=== PATIENT | male | born 1945 | race Caucasian/White ===

== ENCOUNTER → 2017-07-03 09:25 | Outpatient (CLI) | payer MEDICARE, SELFPAY ==
[2013-05-24 08:53] VITALS: BMI 30.5
[2013-05-24 11:36] VITALS: BP 137/86
--- NOTE | 2017-07-03 | ASPOS_PTH ---
PATIENT: RACHEL BEYER LOC: LAB U#:[id number] AGE/SX: 79/M ROOM: RE07/03/[address]: Dr. Shant Cabrera, DO : 1945 BED: DIS: SPEC #: [id number] RECD: 07/03/17 14:46 STATUS: SANDEEP REMiguel #: [id number] BRE: 07/03/17 00:[address]: Ghanshyam Leroy DEPT: CYTOLOGY RECD BY: Curtis Joseph ENTERED: 07/03/17 14:47 SP TYPE: ASP HERE OTHR DR: Dr. Shant Cabrera, DO No Primary Care Phys Tissues: Neck, NOS Procedures: Pap Stain (control) Special Stain Group II Surgery Specimen Level IV Diff Quik Stain (control) Cell Block Cytology Other Fine Needle Asp on Site Comments: @ Ordering doctor for PAPS edited from to @ by NHAN at 07/04/17723 @ Ordering doctor for SSII edited from to DR.CWARTM Ferguson by NHAN at 07/04/17723 @ Ordering doctor for SUIV edited from to DR.CWARTM Ferguson by NHAN at 07/04/17723 @ Ordering doctor for DQ edited from to DR.CWARTM Ferguson by NHAN at 07/04/17723 @ Ordering doctor for CB edited from to DR.CWARTM Ferguson by NHAN at 07/04/17723 @ Ordering doctor for CYOTHER edited from to DR.CWARTM Ferguson by NHAN at 07/04/17723 @ Ordering doctor for FNAOS edited from to DR.CWARTM Ferguson by NHAN at 02/11/14 723 @ Submitting doctor edited from to @ by RGOOD at 07/04/1724 HEADER OPERATION: FNA right upper neck lymph node PRE-OP DIAGNOSIS: Right neck mass TISSUE SUBMITTED: FNA right upper neck lymph node, smears and cell block for cytology, sample for flow DIAGNOSIS CYTOLOGY Fine needle aspiration, right upper neck lymph node (smears and cell block): Atypical lymphocytes are present. AM:sujit 07/07/17 COMMENT The specimen is evaluated at the time of FNA by Dr. Cabrera. Immediate Evaluation = Atypical lymphocyte population. Immunohistochemistry ([id number]) reveals a prominent portion of B-cells (CD79a positive). Flow cytometric analysis performed at [facility] reveals the population to be positive for CD5, CD43 and negative for CD23. A monoclonal B-cell population is detected with kappa light chain restriction representing 54% of the B cells. By light scatter, the clonal B-cell population contains cells that are larger than background T and B cells. There is no loss of aberrant expression of kearns T-cell antigens. An atypical lymphoproliferative process is present. Clinical correlation is necessary. An incisional or excisional biopsy is recommended for definite classification. The complete report from [facility] is viewable in patient?s EMR. Case has been reviewed in consultation with Dr. Matthews who concurs with the above diagnosis. IDC:SJ CYTOLOGY STUDY Slides are reviewed. CYTOLOGY GROSS Received is 0.2 ml of reddish fluid labeled with the patient's name, and designated FNA right upper neck lymph node. Three imprints and three paps are made from the submitted fluid and the rest is added to CytoLyt for cell block preparation. Submitted for cytology study. / AM:sujit 07/03/17 TC:? CPT: 73395, 49091, 05912, 57906
--- NOTE | 2017-07-03 | IMM_PTH ---
PATIENT: RACHEL BEYER LOC: [facility] U#:[id number] AGE/SX: 79/M ROOM: RE07/03/[address]: Dr. Shant Cabrera DO : 1945 BED: DIS: SPEC #: [id number] RECD: 07/04/17 11:06 STATUS: SANDEEP REMiguel #: [id number] BRE: 07/03/17 00:[address]: Shant Cabrera DEPT: IMMUNOHISTOCHEMISTRY RECD BY: Mariposa Carvalho ENTERED: 07/04/17 11:08 SP TYPE: IMMUNO OTHR DR: No Primary Care Phys Tissues: Lymph node of neck, NOS Procedures: BCL-2 (add) BCL-6 (add) CD10 (add) CD20 (add) CD23 (add) CD43 (add) CD45 (add) CD5 (add) CD79A (add) CYCLIN (add) KI-67 (add) CD3 (initial) PHYSICIAN & INSTITUTION [place] [id number] SPECIMEN INFORMATION: Tissue Source: FNA right upper neck lymph node Clinical Info: Right neck mass Specimen Number: [id number] CPT code: 08540, 51157 x11 METHODOLOGY: Deparaffinized sections of prefer/formalin-fixed tissue or PAP/DQ stained slides are incubated with monoclonal/polyclonal antibodies/oligonucleotide probes. Localization is made via biotin free immunoperoxidase method. Appropriate controls are performed and reacted as expected. Results on target cell population are indicated in the following table: RESULTS: ANTIBODY / CLONE RESULT CD3 (PS1) positive CD5 (SP10) positive CD10 (56C6) negative CD20 (L26) positive CD23 (1B12) positive CD45 (RP2/18) positive CD79a (11E3) positive CD43 (L60) positive Cyclin D1/BCL-1 (SP4) negative BCL-2 (bcl-2/100/D5) positive BCL-6 (QJ911I/A8) negative Ki-67 (30-9) positive, low These tests were developed and their performance characteristics determined by [facility]. They may not have been cleared or approved by the U.S. Food and Drug Administration. The FDA has determined that such clearance or approval is not necessary. INTERPRETATION: Right upper neck lymph node, fine needle aspiration: Atypical lymphocyte population. AM:sujit 07/07/17 Comment: Prominent CD79a (B-cell) staining is present and suspicious for an atypical lymphoproliferative process. Case has been reviewed in consultation with Dr. Matthews who concurs with the above diagnosis. IDC:SJ
== END ==
PROVIDERS: Visit Provider Pathology Anatomic Pathology & Clinical Pathology
DX: R22.1 Localized swelling, mass and lump, neck (principal)
CPT/HCPCS: 10021; 88161; 88305; 88312; 88313; 88341; 88342

== ENCOUNTER → 2017-07-26 15:29 | Outpatient (CLI) | payer MEDICARE, SELFPAY ==
[2017-07-26 16:16] LABS: LDH 212 U/L (87-241)
== END ==
PROVIDERS: Visit Provider Internal Medicine Hematology & Oncology
DX: C85.19 Unspecified B-cell lymphoma, extranodal and solid organ sites (principal); R59.0 Localized enlarged lymph nodes
CPT/HCPCS: 83615

== ENCOUNTER 2017-08-10 15:25 | Emergency (ER) | payer MEDICARE, SELFPAY ==
[2017-08-10 15:26] VITALS: BP 168/102; PULSE 74; RESP 16; TEMP 36; O2SAT 92; BMI 30.7
--- NOTE | 2017-08-10 16:24 | ED.DCSUM_ITS ---
- ER Visit Summary Date of Service: 08/10/17 Chief Complaint: Facial laceration History of Present Illness: The patient is a 71 M presenting for evaluation secondary to a facial laceration. Patient was trimming trees today was wearing safety glasses, he states that the tree branch came back in with them in the face. This caused a laceration just inside of his right eye. He denies loss of consciousness. Patient is not in any anticoagulants. Denies any numbness weakness, does endorse that he has mild amount of blurred vision out of the right eye. He wears contacts not sure if contact is still in place. Review of systems otherwise negative. Physical Examination: Primary survey: Airway is patent, breath sounds equal bilateral, central peripheral pulses 2+ and symmetric, GCS 15 out of 15. Vitals within normal limits. Secondary survey: General: Well-nourished well-developed no acute distress Head: Normocephalic atraumatic Eyes: PERRLA, EOMI, evidence of a laceration measuring approximately a centimeter tracking up into the patient's medial canthus of the right eye from the inferior portion. Unable to determine if this involves the tear duct, but there is some exposed medial rectus muscle and the patient deviates his eyes to the right. Negative Leslee sign. ENT: TMs clear no hemotympanum no drainage Neck: Nontender full range of motion, no step-offs noted Heart: Regular rate and rhythm no murmurs Lungs: Respirations nondistressed, lung sounds clear to auscultation bilaterally , chest nontender, normal chest excursion bilaterally Abdomen: Soft nontender nondistended normal bowel sounds no palpable abdominal masses Back: Nontender no step-offs noted Extremities: Nontender: Active full range of motion ?4 Skin: Normal color no trauma Neuro: Alert and oriented ?4, GCS 15 out of 15, no lateralizing neurological deficits. Emergency Department Course and Treatment: Patient presented secondary to facial trauma. Primary and secondary surveys are noted as above. No indication for neuroimaging at this time. Given the patient's proximity of his laceration to his tear duct in his eye, I believe he would be best evaluated by ophthalmology. I discussed this with Dr. Madrigal, patient will be transferred to Dr. Madrigal's office by private car for definitive repair. Disposition: Transfer to ophthalmology Impression: 1. Right medial canthus laceration This note was generated with Dragon dictation software. It may contain incorrect words, spelling, and punctuation that were not noted in review of the chart prior to signing ED Disposition - Plan for ED Patient: Disposition: Home or Assisted Living Chief Complaint: Eye Problem Diagnosis: Facial laceration Instructions: ED Laceration All Referrals: Guevara Madrigal MD [STAFF PHYSICIAN] - (Go directly to the office)
[2017-08-10] MEDS: Fluorescein 1 MG STRIP 1 STRIP RIGHT EYE (16:30)
== END 2017-08-10 16:31 | disposition home or self-care (01) ==
LOC: ED 16:31
PROVIDERS: Emergency Provider Emergency Medicine; Family Provider Internal Medicine; PCP Internal Medicine
DX: S01.111A Laceration without foreign body of right eyelid and periocular area, initial encounter (principal); R40.2410 Glasgow coma scale score 13-15, unspecified time; R01.1 Cardiac murmur, unspecified; W22.8XXA Striking against or struck by other objects, initial encounter; Y93.9 Activity, unspecified; Y92.9 Unspecified place or not applicable; K21.9 Gastro-esophageal reflux disease without esophagitis; E78.00 Pure hypercholesterolemia, unspecified; E03.9 Hypothyroidism, unspecified; C85.90 Non-Hodgkin lymphoma, unspecified, unspecified site; Z79.82 Long term (current) use of aspirin; Z79.899 Other long term (current) drug therapy
CPT/HCPCS: 99283

== ENCOUNTER 2018-04-30 14:09 | Emergency (ER) | payer MEDICARE, SELFPAY ==
[2018-04-30 14:10] VITALS: BP 169/89; PULSE 75; RESP 16; TEMP 36.7; O2SAT 95
--- NOTE | 2018-04-30 14:35 | EKG12_ITS ---
Test Reason : CP Blood Pressure : / mmHG Vent. Rate : 069 BPM Atrial Rate : 069 BPM P-R Int : 184 ms QRS Dur : 120 ms QT Int : 408 ms P-R-T Axes : -01 -63 081 degrees QTc Int : 437 ms Normal sinus rhythm Left anterior fascicular block Left ventricular hypertrophy with QRS widening Cannot rule out Septal infarct , age undetermined Abnormal ECG Confirmed by MELONIE BRANDON, JOSIAH ([id number]), manager editorial SCARLETT GRIMM ([id number]) on 05/03/2018 1:29:49 PM Referred By: GIOVANNY Confirmed By:JOSIAH WILHELM MD
[2018-04-30] MEDS: Aspirin 81 MG TAB.CHEW 324 MG PO (14:54)
[2018-04-30 14:55] VITALS: O2SAT 95
[2018-04-30 15:04] LABS: Absolute Lymphocyte Count 1.32 X10^3/ul (0.83-4.51); Absolute Neutrophil Count 3.5 X10^3/uL (2.0-7.7); Basophil# 0.04 X10^3/uL; Basophil% 0.7 % (0-1); Eosinophil# 0.15 X10^3/uL; Eosinophils% 2.5 % (0-5); Hematocrit 47.8 % (40-54); Hemoglobin 16.1 g/dl (13.0-16.5); Lymphocyte # 1.32 X10^3/ul (4.0); Lymphocyte % 21.7 % (19-41); Mean Corp Hgb Conc 33.7 g/gl (32-36); Mean Corpuscular Hgb 30.2 pg (27.0-32.0); Mean Corpuscular Volume 89.7 fL (80-94); Mean Platelet Vol. 11.5 fl (6.2-12.0); Monocyte# 1.05 X10^3/uL; Monocyte% 17.3 % (0-10); Neutrophil % 57.6 % (47-70); Platelet Count 171 K/mm3 (150-450); RBC Distribution Width CV 13.8 % (11.6-14.6); RBC Distribution Width SD 45.1 fl (35.1-43.9); Red Blood Count 5.33 M/mm3 (4.6-6.2); White Blood Count 6.1 K/mm3 (4.4-11.0)
[2018-04-30 15:07] LABS: POSITIVE COUNT NO; POSITIVE DIFFERENTIAL NO; POSITIVE MORPHOLOGY NO
--- NOTE | 2018-04-30 15:10 | RAD_ITS ---
STUDY: X-RAY CHEST REASON FOR EXAM: Male, 72 years old. Sternal chest pain. TECHNIQUE: PA and lateral views of the chest. COMPARISON: Comparison is made with prior study dated May 24, 2013. FINDINGS: EKG electrodes are seen. The lungs are clear and expanded. Scattered calcified granulomas. There is no demonstrated pleural abnormality. Normal size heart. Normal mediastinum and alex. Normal visualized pulmonary arteries. There is atherosclerotic calcification of the aortic arch with tortuosity. Normal visualized thoracic spine. Normal visualized ribs, clavicles, and shoulders. There is no demonstrated abnormality of the visualized soft tissue structures of the upper abdomen. RAD/Chest PA and Lateral IMPRESSION: Normal x-ray examination of the chest. Electronically Signed: Davin Mirza MD at 15:37 EST Tel [phone], Service support ,
[2018-04-30 15:14] LABS: Anion Gap 5 (5-15); BUN 22 mg/dL (7-18); BUN/Creat Ratio 19.1 RATIO (10-20); Calcium,Total 8.6 mg/dL (8.5-10.1); Chloride 111 mmol/L (98-107); Creatinine, Serum 1.15 mg/dL (0.70-1.30); EST Glomerular Filtration Rate 66 mL/min (>60); Est Glom Filt Rate - Afr Amer 80 mL/min (>60); Estimated Creatinine Clearance 70.78 ml/min; Glucose 81 mg/dL (74-106); Potassium 4.1 mmol/L (3.5-5.1); Sodium Level 145 mmol/L (136-145)
--- NOTE | 2018-04-30 15:58 | ED.VISSUMM ---
- ER Visit Summary Date of Service: 04/30/18 Chief Complaint: Chest pain History of Present Illness: The patient is a 72 M presenting with essentially 3 weeks of intermittent right sided nonradiating chest pain. He states that the chest pain only occurs when he goes from a sitting position to standing and last for 1-2 seconds. He describes it as right along the lateral aspect of the right side of his sternum. It does not radiate into his back. He denies any associated diaphoresis or dyspnea. No exertional component. No recent travel or immobilization. No lower extremity pain or swelling. He has never smoked. He has a history of hypothyroidism only. He takes a thyroid medication and a baby aspirin daily. He has had negative stress test in the past. Denies family history of cardiac disease at young age. He states that he has not had any symptoms with exertion and has no difficulty going on long walks again the pain only occurs when going from sitting to standing. Physical Examination: Vitals are within normal limits. He is not in distress. Neck is supple. Heart tones are regular and without murmur. Lungs are clear bilaterally. Abdomen is soft and nontender. He has no tenderness along the lower extremity venous system, palpable cords, edema, or other evidence of DVT. Test Results: Chest x-ray is unremarkable. CBC and chemistries normal. Troponin negative. EKG unremarkable. Emergency Department Course and Treatment: Vitals are within normal limits. He is not in distress. EKG reveals sinus rhythm without acute ischemic changes. Troponin is negative after 4 weeks of symptoms but they have been intermittent. I talked with him about his overall risk profile. The pain is somewhat atypical by description. It is only on the right side and only occurs with certain movements, not worse with exertion. He has no associated cardiac type symptoms such as diaphoresis or dyspnea and no trouble with exertion or going on long walks. He is in excellent shape physically and has no significant family cardiac history. He has never been a smoker. He has no clinical evidence of DVT and there is no pleuritic component. He has no risk factors for pulmonary embolism. He has no mediastinal widening on chest x-ray and he has strong pulses in both upper extremities. No evidence of aortic dissection. I explained the possibility of bringing him in here for observation and a stress test but he would prefer to do this as an outpatient. I paged his primary care physician to arrange this and encouraged him to come back if he has any further symptoms or new or concerning features. Treatment Plan: Follow up closely with his doctor for an outpatient stress test Disposition: Home stable Impression: She will encounter chest pain uncertain etiology This note was generated with [employer] dictation software. It may contain incorrect words, spelling, and punctuation that were not noted in review of the chart prior to signing ED Disposition - Plan for ED Patient: Chief Complaint: Chest Other Instructions: ED Chest Pain Atypical Unkn Cause Referrals: Esteban Smyth MD [Primary Care Provider] -
[2018-04-30 16:19] VITALS: BP 118/64; PULSE 71; RESP 20; O2SAT 100
--- NOTE | 2018-04-30 16:21 | ED.RN ---
THIS NURSE REVIEWED D/C INSTRUCTIONS WITH PT. PT VERBALIZED UNDERSTANDING OF INSTRUCTIONS. IV D/C. IV CATHETER INTACT. PT TOLERATED WELL. PT DENIES FURTHER NEEDS OR QUESTIONS AT THIS TIME. PT AMBULATES FROM ROOM ON OWN WITHOUT ASSISTANCE FROM STAFF
== END 2018-04-30 16:22 | disposition home or self-care (01) ==
LOC: ED 15:00
PROVIDERS: Emergency Provider Emergency Medicine; Family Provider Internal Medicine; PCP Internal Medicine
DX: R07.89 Other chest pain (principal); E03.9 Hypothyroidism, unspecified; Z79.82 Long term (current) use of aspirin; Z79.899 Other long term (current) drug therapy
CPT/HCPCS: 71046; 80048; 84484; 85025; 93005; 99284; A4216

== ENCOUNTER → 2018-06-06 11:54 | Outpatient (CLI) | payer MEDICARE, SELFPAY ==
[2018-06-06 12:13] LABS: Mucous, Urine 0 SEEN /hpf (<or=2+); Red Blood Cells-Urine 0 SEEN /hpf (0-5)
[2018-06-06 12:22] LABS: Color, Urine Yellow (Yellow); Glucose, Dipstick Normal (Normal); Ketone-Dipstick Negative (Negative); Leukocyte Esterase-Dipstick Negative /ul (Negative); Nitrite-Dipstick Negative (Negative); Occult Blood-Urine Negative /ul (Negative); Protein-Dipstick Negative (Negative); Specific Gravity, Urine 1.005 (1.002-1.030); Urine Bilirubin Dipstick Negative (Negative); Urine Clarity Clear (Clear); Urine Urobilinogen Normal (Normal)
[2018-06-06 12:39] LABS: PSA,Total- Diagnostic 1.49 ng/mL (0.0-4.0); Thyroid Stim Hormone (TSH) 1.43 uIU/mL (0.358-3.74)
[2018-06-06 12:43] LABS: Squamous Epithelial Cells - UA 0 SEEN /hpf (0-5); White Blood Cells 0 SEEN /hpf (0-5)
[2018-06-06 12:44] LABS: Bacteria 0 SEEN /hpf (None Seen)
== END ==
PROVIDERS: Family Provider Internal Medicine; PCP Internal Medicine; Referring Provider Nurse Practitioner; Visit Provider Nurse Practitioner
DX: N40.1 Benign prostatic hyperplasia with lower urinary tract symptoms (principal); R35.0 Frequency of micturition; R31.29 Other microscopic hematuria; R10.30 Lower abdominal pain, unspecified; E03.9 Hypothyroidism, unspecified
CPT/HCPCS: 81001; 84153; 84443; 87086

== ENCOUNTER → 2018-08-31 13:02 | Outpatient (CLI) | payer MEDICARE, SELFPAY ==
--- NOTE | 2018-08-31 13:05 | ECHOD_ITS ---
Reason For Study: Dyspnea/SOB Procedure This was a 2D Doppler, Color Flow transthoracic echocardiogram. Myocardial strain analysis was performed in this exam to aid in the assessment of cardiac function. The exam was of adequate technical quality. Exam performed in department. Left Ventricle Normal LV size. Left ventricular systolic function is normal. The estimated ejection fraction is 65 %. The global longitudinal strain = -22 % (normal). Diastolic function is indeterminate. No regional wall motion abnormalities noted. Right Ventricle Normal RV size. Normal systolic function. Atria The left atrium is mildly enlarged. Normal right atrium. No doppler evidence for ASD. Mitral Valve There is no mitral annular calcification. Normal mitral valve. Trivial mitral valve insufficiency. Tricuspid Valve Trivial tricuspid valve insufficiency. Aortic Valve Trisinus/trileaflet aortic valve. Normal aortic valve. Pulmonic Valve The pulmonic valve is not well visualized. Trivial pulmonic valve insufficiency. Great Vessels Normal sized aortic root. Pericardium/Pleural No pericardial effusion. MMode/2D Measurements & Calculations LVIDd: 4.0 cm IVSd: 1.5 cm Ao root diam: 3.6 cm LVIDs: 2.5 cm LVPWd: 1.0 cm LA dimension: 3.8 cm RVDd: 3.5 cm FS: 37.3 % LAV(MOD-bp): 57.4 ml LVAd ap4: 31.3 cm2 SV(MOD-sp4): 61.1 ml LAV(MOD-bp) Indexed: 29.0 ml/m2 EDV(MOD-sp4): 102.8 ml LAV(MOD-sp2): 57.0 ml EDV(sp4-el): 108.5 ml LAV(MOD-sp4): 51.6 ml LVAs ap4: 17.5 cm2 ESV(MOD-sp4): 41.8 ml ESV(sp4-el): 42.1 ml EF(MOD-sp4): 59.4 % EF(sp4-el): 61.2 % SV(sp4-el): 66.4 ml LA A4 area: 19.3 cm2 RA A4 area: 18.1 cm2 Time Measurements MV dec time: 0.20 sec Doppler Measurements & Calculations MV E max gilbert: 79.8 cm/sec Lat Peak E' Gilbert: 10.8 cm/sec Med Peak E' Gilbert: 5.0 cm/sec MV A max gilbert: 90.6 cm/sec E/E' lat: 7.4 E/E' med: 16.1 MV E/A: 0.88 MV V2 max: 104.9 cm/sec MV P1/2t max gilbert: 89.1 cm/sec Ao V2 max: 112.5 cm/sec MV max P.4 mmHg MV P1/2t: 103.4 msec Ao max P.1 mmHg MV V2 mean: 55.2 cm/sec MV mean P.5 mmHg MV dec slope: 252.4 cm/sec2 MV V2 VTI: 33.7 cm MVA(P1/2t): 2.1 cm2 LV V1 max: 85.5 cm/sec PA V2 max: 76.2 cm/sec PI end-d gilbert: 128.3 cm/sec LV V1 max P.9 mmHg Interpretation Summary Left ventricular systolic function is normal. The estimated ejection fraction is 65 %. The global longitudinal strain = -22 % (normal). The left atrium is mildly enlarged. Trivial mitral valve insufficiency. Trivial tricuspid valve insufficiency. Trivial pulmonic valve insufficiency. Diastolic function is indeterminate. Ordering Physician: Andre Cook Referring Physician: Andre Cook Performed By: Marco Ayon RCS
== END ==
PROVIDERS: Family Provider Internal Medicine; PCP Internal Medicine; Referring Provider Nurse Practitioner Family; Visit Provider Nurse Practitioner Family
DX: R06.02 Shortness of breath (principal); I44.4 Left anterior fascicular block; I10 Essential (primary) hypertension
CPT/HCPCS: 93306

== ENCOUNTER → 2020-02-12 08:42 | Outpatient (CLI) | payer MEDICARE, SELFPAY ==
[2020-02-12 10:06] LABS: AST(SGOT) 20 U/L (15-37); Alanine Aminotransfer ALT/SGPT 41 U/L (16-61); Albumin, Serum 3.6 g/dL (3.2-5.0); Alkaline Phosphatase 70 U/L (45-117); Bilirubin, Direct 0.14 mg/dL (0.00-0.30); Cholesterol 150 mg/dL (200); Globulin 3.2 g/dL (2.2-4.2); High Density Lipoprotein 43 mg/dL; Protein, Total 6.8 g/dL (6.4-8.2); Triglycerides 70 mg/dL; Very Low Density Lipoprotein 14 mg/dL (5-40)
== END ==
PROVIDERS: PCP Internal Medicine; Referring Provider Internal Medicine Cardiovascular Disease; Visit Provider Internal Medicine Cardiovascular Disease
DX: E78.00 Pure hypercholesterolemia, unspecified (principal)
CPT/HCPCS: 36415; 80061; 80076

== ENCOUNTER → 2020-03-16 10:04 | Outpatient (CLI) ==
[2020-03-16 11:58] LABS: PSA,Total- Diagnostic 2.98 ng/mL (0.0-4.0)
== END ==
PROVIDERS: Urology
DX: N40.1 Benign prostatic hyperplasia with lower urinary tract symptoms (principal)
CPT/HCPCS: 36415; 84153

== ENCOUNTER → 2020-12-28 | Outpatient (CLI) | payer MEDICARE, SELFPAY ==
[2020-12-28 13:56] LABS: Hemoglobin A1c 5.4 % (3.8-5.6)
[2020-12-28 13:59] LABS: Thyroid Stim Hormone (TSH) 3.06 uIU/mL (0.358-3.74)
== END | disposition home or self-care (01) ==
LOC: LABSPEC 13:15
PROVIDERS: PCP Internal Medicine; Visit Provider Internal Medicine
DX: E03.9 Hypothyroidism, unspecified (principal); E66.9 Obesity, unspecified; R73.09 Other abnormal glucose
CPT/HCPCS: 83036; 84443

== ENCOUNTER → 2021-02-16 10:25 | Outpatient (CLI) | payer MEDICARE, SELFPAY ==
[2021-02-16 11:07] LABS: Cholesterol 139 mg/dL (200); High Density Lipoprotein 44 mg/dL; Triglycerides 61 mg/dL; Very Low Density Lipoprotein 12 mg/dL (5-40)
== END ==
PROVIDERS: PCP Internal Medicine; Referring Provider Internal Medicine; Visit Provider Internal Medicine
DX: E78.5 Hyperlipidemia, unspecified (principal)
CPT/HCPCS: 80061

== ENCOUNTER → 2021-05-11 14:31 | Outpatient (CLI) | payer MEDICARE, SELFPAY ==
[2021-05-11 16:08] LABS: PSA,Total- Diagnostic 2.12 ng/mL (0.0-4.0)
== END ==
PROVIDERS: PCP Internal Medicine; Visit Provider Urology
DX: N40.1 Benign prostatic hyperplasia with lower urinary tract symptoms (principal)
CPT/HCPCS: 36415; 84153

== ENCOUNTER → 2021-05-26 | Outpatient (CLI) | payer MEDICARE, SELFPAY ==
[2021-05-26 09:16] LABS: Hematocrit 49.4 % (40-54); Hemoglobin 16.7 g/dL (13.0-16.5); Mean Corp Hgb Conc 33.8 g/dL (32-36); Mean Corpuscular Hgb 29.8 pg (27.0-32.0); Mean Corpuscular Volume 88.2 fL (80-94); Mean Platelet Vol. 11.3 fl (6.2-12.0); Platelet Count 169 K/mm3 (150-450); RBC Distribution Width CV 13.7 % (11.6-14.6); White Blood Count 6.8 K/mm3 (4.4-11.0)
[2021-05-26 09:28] LABS: ALB/GLOB Ratio 1.1 RATIO (0.9-2.4); AST(SGOT) 16 U/L (15-37); Alanine Aminotransfer ALT/SGPT 39 U/L (16-61); Albumin, Serum 3.5 g/dL (3.2-5.0); Alkaline Phosphatase 62 U/L (45-117); Anion Gap 5 (5-15); BUN 23 mg/dL (7-18); BUN/Creat Ratio 21.1 RATIO (10-20); Calcium,Total 8.7 mg/dL (8.5-10.1); Chloride 108 mmol/L (98-107); Creatinine, Serum 1.09 mg/dL (0.70-1.30); EST Glomerular Filtration Rate 70 mL/min (>60); Est Glom Filt Rate - Afr Amer 85 mL/min (>60); Globulin 3.2 g/dL (2.2-4.2); Glucose 103 mg/dL (74-106); Potassium 4.4 mmol/L (3.5-5.1); Protein, Total 6.7 g/dL (6.4-8.2); Sodium Level 142 mmol/L (136-145)
[2021-05-26 09:30] LABS: Prothrombin Time (Protime)PT. 12.4 SECONDS (11.7-14.9)
[2021-05-26 09:31] LABS: Partial Thromboplast Time 27.8 Seconds (24.1-36.2)
[2021-05-26 09:58] LABS: Hemoglobin A1c 5.3 % (3.8-5.6)
== END | disposition home or self-care (01) ==
LOC: LABSPEC 08:53
PROVIDERS: PCP Internal Medicine; Visit Provider Internal Medicine
DX: Z01.818 Encounter for other preprocedural examination (principal); E66.9 Obesity, unspecified
CPT/HCPCS: 80053; 83036; 85027; 85610; 85730

== ENCOUNTER → 2023-04-04 | Outpatient (CLI) | payer MEDICARE, SELFPAY ==
[2023-04-04 15:42] LABS: PSA,Total - Annual Screen 3.54 ng/mL (0.00-4.00)
== END | disposition home or self-care (01) ==
LOC: LAB 14:34
PROVIDERS: PCP Internal Medicine; Visit Provider Nurse Practitioner
DX: Z12.5 Encounter for screening for malignant neoplasm of prostate (principal)
CPT/HCPCS: 36415; 84153; G0103

== ENCOUNTER → 2025-01-23 | Outpatient (CLI) | payer MEDICARE, SELFPAY ==
[2025-01-23 15:06] LABS: PSA,Total - Annual Screen 0.62 ng/mL (0.02-4.00)
== END | disposition home or self-care (01) ==
PROVIDERS: PCP Internal Medicine; Referring Provider Urology; Visit Provider Urology
DX: Z12.5 Encounter for screening for malignant neoplasm of prostate (principal)
CPT/HCPCS: 36415; 84153; G0103